=== PATIENT | male | born 2000 | race African-American/Black ===

== ENCOUNTER 2021-12-09 14:27 | Emergency (ER) | payer OTHER, SELFPAY ==
[~2021-12-09] VITALS: Ht 188 cm; Wt 75.0 kg
[2021-12-09] MEDS ORDERED: NS 1,000 ML IV ONE (16:25)
[2021-12-09] MEDS ORDERED: ONDANSETRON 4MG 2ML VIAL IV ONE (16:25)
[2021-12-09 16:53] LABS: BASO % 0.4 % (0.0-1.0); EOS % 0.1 % (0.0-3.0); HEMATOCRIT 48.5 % (42.0-52.0); HEMOGLOBIN 15.7 g/dl (13.5-17.5); LYMPH # 0.8 10^3/uL (1.5-5.0); LYMPH % 7.4 % (24.0-44.0); MEAN CORPUSCULAR HEMOGLOBIN 30.5 pg (27.0-33.0); MEAN CORPUSCULAR HGB CONC 32.4 g/dl (32.0-36.5); MEAN CORPUSCULAR VOLUME 94.2 fl (80.0-96.0); MONO # 0.6 10^3/uL (0.0-0.8); MONO % 6.3 % (2.0-8.0); NEUTROPHILS # 8.6 10^3/uL (1.5-8.5); NEUTROPHILS % 85.5 % (36.0-66.0); PLATELET COUNT, AUTOMATED 270 10^3/uL (150-450); RED BLOOD COUNT 5.15 10^6/uL (4.30-6.10); WHITE BLOOD COUNT 10.1 10^3/uL (4.0-10.0)
[2021-12-09 17:16] LABS: ERYTHROCYTE SEDIMENTATION RATE 2 mm/hr (0-15)
[2021-12-09 17:56] LABS: ALBUMIN 4.6 GM/DL (3.2-5.2); ALT/SGPT 33 U/L (12-78); BILIRUBIN,DIRECT < 0.1 MG/DL (0.0-0.2); BILIRUBIN,TOTAL 0.4 MG/DL (0.2-1.0); C REACTIVE PROTEIN QUANTITATIV < 0.30 MG/DL (0.00-0.30); LIPASE 51 U/L (73-393)
[2021-12-09] MEDS ORDERED: ISOVUE-370 76% 100ML VIAL As Ordered ONE (18:24)
[2021-12-09] MEDS ORDERED: ONDA4TAB6 PO (20:03)
[2021-12-09 20:28] VITALS: BP 129/71
== END 2021-12-09 20:30 | disposition home or self-care (01) ==
LOC: M ED 14:27
DX: K52.9 Noninfective gastroenteritis and colitis, unspecified (principal)
CPT/HCPCS: 36415; 74177; 80047; 80076; 81001; 83690; 85025; 85652; 86140; 87486; 87581; 87633; 87798; 93005; 96374; 99284; J2405; Q9967